=== PATIENT | female | born 1940 | race Caucasian/White ===

== ENCOUNTER → 2018-07-27 | Outpatient (CLI) | payer OTHER | LOC: M.RAD 10:49 | DX: I51.7 Cardiomegaly (principal); J90 Pleural effusion, not elsewhere classified; E03.9 Hypothyroidism, unspecified ==

== ENCOUNTER → 2018-07-29 | Outpatient (CLI) | payer OTHER ==
[2018-07-29 08:59] LABS: INR 1.7
[2018-07-29 12:54] LABS: BF RBC 55671 /mm3; TOTAL CELL COUNT 1197 /mm3
[2018-07-29 13:01] LABS: CLARITY HAZY; COLOR RED; TOTAL VOLUME 1100 ml
[2018-07-29 13:14] LABS: BF LYMPHOCYTES 76 %; BF MONOCYTES 21 %; BF POLYS 3 %
[2018-07-29 13:26] LABS: SOURCE THORACENTESIS
== END | disposition home or self-care (01) ==
LOC: M.ULTRA 08:31 → M.LAB 09:00 → M.ULTRA 10:00
PROVIDERS: Family Medicine
DX: J90 Pleural effusion, not elsewhere classified (principal)

== ENCOUNTER 2019-11-13 15:55 | Inpatient (IN) | payer OTHER ==
[~2019-11-13] VITALS: Ht 160 cm; Wt 59.0 kg
--- NOTE | ~2019-11-13 | PROC ---
[address] [address] PROCEDURE REPORT Name: ANGELINA YEBOAH Room: [address] IN ..#: [id number] Admission: 11/13/19 Attend Phys: Zurdo Alva MD Discharge: Date of : 38 Report #: [id number] THIS REPORT FOR: //name// For GI report, please see the Provation report in Perceptive 7 content. By: [id number] Records Staff SCOTT /REY
--- NOTE | ~2019-11-13 | PROC ---
[address] [address] PROCEDURE REPORT Name: ANGELINA YEBOAH Room: [address] IN ..#: [id number] Admission: 11/13/19 Attend Phys: Zurdo Alva MD Discharge: Date of : 38 Report #: [id number] THIS REPORT FOR: //name// For GI report, please see the Provation report in Perceptive 7 content. By: [id number] Records Staff [facility] /REY
[2019-11-13 16:03] VITALS: BP 99/45
[2019-11-13] MEDS ORDERED: ELIQUIS5 MG PO (16:15)
[2019-11-13] MEDS ORDERED: DIGOX250 MCG PO (16:15)
[2019-11-13] MEDS ORDERED: METOLAZONE10 MG PO (16:18)
[2019-11-13] MEDS ORDERED: LEVO-T25 MCG PO (16:18)
[2019-11-13] MEDS ORDERED: COLACE100 MG PO (16:19)
[2019-11-13] MEDS ORDERED: KLOR-CON M2020 MEQ PO (16:20)
[2019-11-13] MEDS ORDERED: OCUVITE ADULT1 EAC1 PO (16:20)
[2019-11-13] MEDS ORDERED: PRAVACHOL40 M1 PO (16:21)
[2019-11-13] MEDS ORDERED: IRON325 M1 PO (16:21)
[2019-11-13] MEDS ORDERED: DEMADEX20 MG PO (16:21)
[2019-11-13] MEDS ORDERED: SPIRONOLACTONE50 MG PO (16:22)
[2019-11-13] MEDS ORDERED: TOPROL XL50 MG PO (16:22)
[2019-11-13 16:51] LABS: ABSOLUTE MONOCYTES 0.7 thou/uL (0.0-1.2); ABSOLUTE NEUTROPHILS 2.1 thou/uL (1.6-8.1); EOSINOPHILS 1.2 %; LYMPHOCYTES 25.6 %; MCH 31.8 pg (26.0-34.0); MCHC 32.9 g/dL (28.0-37.0); MCV 96.6 fL (80.0-100.0); MONOCYTES 17.3 %; MPV 7.7 fl. (7.2-11.1); NUCLEATED RBCS 0 /100WBC; PLATELET COUNT* 172 thou/uL (150-400); POLYS 54.9 %; RBC 1.78 mil/uL (4.20-5.00); RDW-CV 14.1 % (10.5-14.5); WBC 3.9 thou/uL (4.0-11.0)
[2019-11-13 16:54] LABS: HEMATOCRIT 17.2 % (37.0-47.0); HEMOGLOBIN 5.7 gm/dL (12.0-15.0)
[2019-11-13 17:02] LABS: CALCIUM 8.4 mg/dL (8.5-10.1); CREATININE 1.3 mg/dL (0.6-1.3)
[2019-11-13 17:11] LABS: ALBUMIN 2.8 g/dL (3.4-5.0); TOTAL BILIRUBIN 0.7 mg/dL (<0.1-1.0); TOTAL PROTEIN 5.5 g/dL (6.4-8.2)
[2019-11-13 19:08] VITALS: BP 106/68
[2019-11-13 19:30] VITALS: BP 113/39
[2019-11-14] VITALS (8 sets, daily range): BP systolic 98–122; BP diastolic 37–70
[2019-11-14 04:15] LABS: URINE BILIRUBIN NEGATIVE (Negative); URINE BLOOD NEGATIVE (Negative); URINE CLARITY CLEAR; URINE COLOR YELLOW; URINE GLUCOSE-RANDOM NEGATIVE (Negative); URINE KETONES NEGATIVE (Negative); URINE LEUKOCYTES-REFLEX 1+ (Negative); URINE NITRITE-REFLEX NEGATIVE (Negative); URINE PROTEIN NEGATIVE (Negative); URINE SPECIFIC GRAVITY <= 1.005 (1.005-1.030); URINE UROBILINOGEN 0.2 E.U./dl (0.2-1.0)
[2019-11-14 06:13] LABS: SQUAMOUS 0-3 Few /LPF (0-3)
[2019-11-14 06:15] LABS: BACTERIA-REFLEX 1-9 Few /HPF (None Seen); CASTS None Seen /LPF (None Seen); CRYSTALS None Seen /LPF (None Seen); URINE RBC 0-2 Rare /HPF (0-2); URINE WBC-REFLEX 6-15 Few /HPF (0-5)
[2019-11-14 07:03] LABS: ABSOLUTE EOSINOPHILS 0.1 thou/uL (0.0-0.7); ABSOLUTE MONOCYTES 0.8 thou/uL (0.0-1.2); ABSOLUTE NEUTROPHILS 2.7 thou/uL (1.6-8.1); BASOPHILS 0.9 %; EOSINOPHILS 1.5 %; LYMPHOCYTES 21.9 %; MCH 31.5 pg (26.0-34.0); MCV 92.5 fL (80.0-100.0); MONOCYTES 17.8 %; NUCLEATED RBCS 0 /100WBC; PLATELET COUNT* 146 thou/uL (150-400); POLYS 57.9 %; RBC 1.93 mil/uL (4.20-5.00); RDW-CV 16.5 % (10.5-14.5); WBC 4.6 thou/uL (4.0-11.0)
[2019-11-14 07:06] LABS: HEMATOCRIT 17.8 % (37.0-47.0); HEMOGLOBIN 6.1 gm/dL (12.0-15.0)
[2019-11-14 07:13] LABS: CALCIUM 8.4 mg/dL (8.5-10.1); CREATININE 1.4 mg/dL (0.6-1.3); POTASSIUM 4.3 mmol/L (3.5-5.1)
--- NOTE | 2019-11-14 14:49 | 2DMMODE ---
[place] [address] 2 D/M-MODE ECHOCARDIOGRAM Name: ANGELINA YEBOAH Room: [address] IN [facility]#: [id number] Admission: 11/13/19 Attend Phys: Zurdo Alva, Discharge: Date of : 38 Date of Service: 11/14/19 1449 Report #: [id number] THIS REPORT FOR: //name// APPROVED REPORT Study performed: 11/14/2019 09:44:48 EXAM: Comprehensive 2D, Doppler, and color-flow Echocardiogram Patient Location: In-Patient Room #: [facility] Status: routine BSA: 1.58 HR: 79 bpm BP: 99/37 mmHg Rhythm: NSR Other Information Study Quality: Good Indications Mitral Valve Disease 2D Dimensions IVSd: 12.84 (7-11mm) LVOT Diam: 21.55 (18-24mm) LVDd: 39.26 mm PWd: 11.33 (7-11mm) Ascending Ao: 25.34 (22-36mm) LVDs: 24.64 (25-40mm) Aortic Root: 30.21 mm Volumes Left Atrial Volume (Systole) LA ESV Index: 96.60 mL/m2 Aortic Valve LVOT Max P.04 mmHg LVOT Mean P.28 mmHg LVOT Max V: 1.01 m/s LVOT Mean V: 0.71 m/s LVOT V1 VTI: 19.74 cm TDI Medial E' Nicho.: 0.21 m/s Lateral E' Nicho.: 0.16 m/[place] [address] 2 D/M-MODE ECHOCARDIOGRAM Name: ANGELINA YEBOAH Room: [address] IN [facility]#: [id number] Admission: 11/13/19 Attend Phys: Zurdo Alva, Discharge: Date of : 38 Date of Service: 11/14/19 1449 Report #: [id number] PV Peak Nicho.: 1.56 m/s PV Peak Gr.: 9.74 mmHg Tricuspid Valve RAP Estimate: 5.00 mmHg TR Peak Gr.: 44.93 mmHg RVSP: 49.00 mmHg PA Pressure: 49.00 mmHg Left Ventricle The left ventricle is normal size. There is normal LV segmental wall motion. There is normal left ventricular wall thickness. Left ventricular systolic function is vigorous. LVEF is >70%. This study is not technically sufficient to allow evaluation of the LV diastolic function due to atrial fibrillation. Right Ventricle Right ventricle is mildly dilated. The right ventricular systolic function is normal. Atria Left atrium is severely dilated. Closure device present Right atrium is severely dilated. Aortic Valve The aortic valve is normal in structure. No aortic regurgitation is present. There is no aortic valvular stenosis. Mitral Valve Mitral valve clip present Mild mitral regurgitation. No evidence of mitral valve stenosis. Tricuspid Valve Tricuspid valve clip present Severe tricuspid regurgitation. The RVSP is 55-60 mmHg. Moderate pulmonary hypertension. Pulmonic Valve The pulmonary valve is normal in structure. Mild pulmonic regurgitation. Great Vessels The aortic root is normal in size. IVC is dilated and collapses >50% with inspiration. Pericardium There is no pericardial effusion. <Conclusion> [place] [address] 2 D/M-MODE ECHOCARDIOGRAM Name: ANGELINA YEBOAH Room: [address] IN ..#: [id number] Admission: 11/13/19 Attend Phys: Zurdo Alva, Discharge: Date of : 38 Date of Service: 11/14/19 1449 Report #: [id number] The left ventricle is normal size. There is normal left ventricular wall thickness. Left ventricular systolic function is vigorous. LVEF is >70%. Right ventricle is mildly dilated. Left atrium is severely dilated. Right atrium is severely dilated. Closure device present Mitral valve clip present Mild mitral regurgitation. Tricuspid valve clip present Severe tricuspid regurgitation. The RVSP is 55-60 mmHg. Moderate pulmonary hypertension. Mild pulmonic regurgitation. IVC is dilated and collapses >50% with inspiration. <ELECTRONICALLY SIGNED> By: Jeff Corrales MD, FACC 11/14/19 1449 1449 1449 Jeff Corrales MD, FACC /INF
--- NOTE | 2019-11-14 16:05 | EKG ---
[place] [address] ELECTROCARDIOGRAM REPORT Name: ANGELINA YEBOAH Room: [address] ADM IN [facility]#: [id number] Admission: 11/13/19 Attend Phys: Zurdo Alva MD Discharge: Date of : 38 Report #: [id number] THIS REPORT FOR: //name// [facility] ED Test Date: 2019-11-13 Test Time: 16:27:16 Pat Name: ANGELINA YEBOAH Department: Room: [facility] Gender: F Ham Smoker: MS : 1940 Requested By: Garcia Nuñez Order Number: [id number] MD: Asael Rodriguez Measurements Intervals Walker Rate: 70 P: MA: QRS: -81 QRSD: 95 T: 263 QT: 517 QTc: 558 Interpretive Statements Atrial flutter with variable block LAD, consider left anterior fascicular block RSR' in V1 or V2, right VCD or RVH Nonspecific T abnormalities, lateral leads Prolonged QT interval No previous ECG available for comparison Electronically Signed On 11-14-2019 16:05:11 VETERINARY VIROLOGIST by Asael Rodriguez [email or web address] <ELECTRONICALLY SIGNED> By: Asael Rodriguez MD, [facility] 11/14/19 1605 1627 1627 Asael Rodriguez MD, FAC /EPI
[2019-11-15] VITALS: BP 103/40
[2019-11-15 04:00] VITALS: BP 112/43
[2019-11-15 04:35] LABS: ABSOLUTE EOSINOPHILS 0.1 thou/uL (0.0-0.7); ABSOLUTE LYMPHOCYTES 0.9 thou/uL (0.8-5.3); ABSOLUTE MONOCYTES 0.8 thou/uL (0.0-1.2); ABSOLUTE NEUTROPHILS 2.4 thou/uL (1.6-8.1); BASOPHILS 0.6 %; EOSINOPHILS 2.7 %; HEMATOCRIT 20.9 % (37.0-47.0); HEMOGLOBIN 7.3 gm/dL (12.0-15.0); LYMPHOCYTES 21.9 %; MCH 31.2 pg (26.0-34.0); MCHC 34.8 g/dL (28.0-37.0); MCV 89.7 fL (80.0-100.0); MONOCYTES 19.2 %; MPV 7.1 fl. (7.2-11.1); NUCLEATED RBCS 0 /100WBC; PLATELET COUNT* 131 thou/uL (150-400); POLYS 55.6 %; RBC 2.33 mil/uL (4.20-5.00); RDW-CV 15.8 % (10.5-14.5); WBC 4.3 thou/uL (4.0-11.0)
[2019-11-15 04:46] LABS: ALBUMIN 2.4 g/dL (3.4-5.0); CALCIUM 7.7 mg/dL (8.5-10.1); CREATININE 1.1 mg/dL (0.6-1.3); POTASSIUM 3.9 mmol/L (3.5-5.1); TOTAL BILIRUBIN 1.4 mg/dL (<0.1-1.0); TOTAL PROTEIN 4.6 g/dL (6.4-8.2)
[2019-11-15 05:47] LABS: CALCIUM 7.6 mg/dL (8.5-10.1); CREATININE 1.1 mg/dL (0.6-1.3); POTASSIUM 3.8 mmol/L (3.5-5.1)
[2019-11-15 08:00] VITALS: BP 103/40
[2019-11-15 16:49] VITALS: BP 99/36
[2019-11-15 20:00] VITALS: BP 104/49
[2019-11-16] VITALS: BP 99/40
[2019-11-16 04:00] VITALS: BP 89/44
[2019-11-16 04:47] LABS: ABSOLUTE EOSINOPHILS 0.1 thou/uL (0.0-0.7); ABSOLUTE MONOCYTES 0.9 thou/uL (0.0-1.2); ABSOLUTE NEUTROPHILS 5.4 thou/uL (1.6-8.1); BASOPHILS 0.5 %; EOSINOPHILS 1.7 %; HEMOGLOBIN 7.7 gm/dL (12.0-15.0); LYMPHOCYTES 13.3 %; MCH 30.4 pg (26.0-34.0); MCHC 33.3 g/dL (28.0-37.0); MCV 91.3 fL (80.0-100.0); MONOCYTES 11.6 %; MPV 7.6 fl. (7.2-11.1); NUCLEATED RBCS 0 /100WBC; PLATELET COUNT* 154 thou/uL (150-400); POLYS 72.9 %; RBC 2.52 mil/uL (4.20-5.00); RDW-CV 15.9 % (10.5-14.5); WBC 7.3 thou/uL (4.0-11.0)
[2019-11-16 05:07] LABS: ALBUMIN 2.6 g/dL (3.4-5.0); CALCIUM 8.7 mg/dL (8.5-10.1); CREATININE 1.2 mg/dL (0.6-1.3); POTASSIUM 4.7 mmol/L (3.5-5.1); TOTAL BILIRUBIN 1.1 mg/dL (<0.1-1.0); TOTAL PROTEIN 5.1 g/dL (6.4-8.2)
[2019-11-16 08:00] VITALS: BP 99/39
--- NOTE | 2019-11-16 14:27 | CON ---
[address] [address] CONSULTATION Name: ANGELINA YEBOAH Room: [address] IN M.R.#: [id number] Admission: 11/13/19 Attend Phys: Zurdo Alva MD Discharge: Date of : 38 Report #: [id number] THIS REPORT FOR: //name// CC: Zurdo Santiago DO DICTATED BY: Erika Oneil [facility] DATE OF SERVICE: 11/14/2019 Please note at the time of this dictation, the patient was seen and physically examined by myself. REASON FOR CONSULTATION: GI bleed, melanotic stool. HISTORY OF PRESENT ILLNESS: This is a pleasant 79-year-old female who presented to the Emergency Room, which she states that she is having progressively worsening of black stool. She states she had had several, the day of admission. Normally, her bowels just move once daily; however, over the last 2 weeks, they have been increasing in frequency and worsening at night. She has had some nausea associated with it, but no vomiting. She does have some epigastric pain. She will have some mild lower abdominal cramping prior to a bowel movement. The patient is on anticoagulant therapy secondary to atrial fibrillation. She has been seen by consultants in Gastroenterology by Dr. Salinas many years ago. She has had both an upper and lower scopes done and we will obtain those records for review. The patient also states prior to the onset of all this, she has been having some difficulty with dysphagia that she feels like food is getting stuck or has difficulty in going down, but she has never vomited from any of these episodes. She denies taking any NSAIDs at this time and she denies any acid reflux or taken any PPIs at this time. ALLERGIES: LISINOPRIL AND TALWIN. HOME MEDICATIONS: From home include digoxin, Eliquis, metolazone, levothyroxine, potassium chloride, Ocuvite, soft gels, iron supplement, Demadex, Pravachol, spironolactone, Toprol and Colace. PAST MEDICAL HISTORY: Dyslipidemia, edema, generalized permanent atrial fibrillation, she has had irritable bowel syndrome, hemorrhoids, history of supraventricular tachycardia and V-tach, coronary artery disease, she has mitral valve insufficiency and tricuspid valve regurgitation. PAST SURGICAL HISTORY: She had an atrial septal defect with repair, [place] [address] CONSULTATION Name: ANGELINA YEBOAH Bri Room: [address] IN [facility]#: [id number] Admission: 11/13/19 Attend Phys: Zurdo Alva MD Discharge: Date of : 38 Report #: [id number] FAMILY HISTORY: Sister, breast cancer. SOCIAL HISTORY: She lives with her sister. Denies any alcohol, tobacco or illegal drug use. REVIEW OF SYSTEMS: Twelve-point review of systems is essentially negative except what is mentioned in the HPI. PHYSICAL EXAMINATION: VITAL SIGNS: Temperature 37.5, pulse 86, respirations 18, blood pressure 121/55. HEART: Regular rate and rhythm. Her heart has irregular rate and rhythm. LUNGS: Diminished, but clear. ABDOMEN: Soft, positive bowel sounds in all 4 quadrants with some slight epigastric tenderness noted to palpation. LABORATORY DATA: Hemoglobin was 5.7 on admission, currently 6.1. She has gotten 1 unit of blood and on for second. White count is 4.6, platelets 146. BUN on admission was 72, it is 63 at this time with a creatinine of 1.4 and GFR of 36. CTA shows biliary sludge, otherwise bowel wall thickening in the rectosigmoid area and diverticulosis. IMPRESSION: 1. Gastrointestinal bleed. 2. Melanotic stool. 3. Nausea. 4. Epigastric pain. 5. Acute anemia. 6. Dysphagia. 7. Anticoagulant therapy, Eliquis, secondary to atrial fibrillation. 8. Family history, sister with breast cancer. PLAN: 1. EGD tomorrow with Dr. Haynes. 2. Start a Protonix drip. 3. Labs, CBC, CMP tomorrow in the a.m. 4. Transfuse to keep hemoglobin greater than 7, p.r.n. 5. Further recommendations to be made once Dr. Haynes sees the patient later today. Thank you for allowing us to participate in this patient's care. Please do not hesitate to call with any questions in regard to this consult. <ELECTRONICALLY SIGNED> By: Melina Haynes MD 11/16/19 1427 1059 1139Melina Haynes MD /nt
[2019-11-16 16:34] VITALS: BP 108/44
[2019-11-16 19:59] VITALS: BP 110/46
[2019-11-17] VITALS: BP 101/41
[2019-11-17 04:00] VITALS: BP 99/41
[2019-11-17 04:57] LABS: HEMATOCRIT 21.3 % (37.0-47.0); HEMOGLOBIN 7.2 gm/dL (12.0-15.0); MCH 30.6 pg (26.0-34.0); MCHC 33.6 g/dL (28.0-37.0); MCV 91.1 fL (80.0-100.0); MPV 7.1 fl. (7.2-11.1); RBC 2.34 mil/uL (4.20-5.00); RDW-CV 15.5 % (10.5-14.5); WBC 4.2 thou/uL (4.0-11.0)
[2019-11-17 05:17] LABS: CALCIUM 7.7 mg/dL (8.5-10.1); CREATININE 1.6 mg/dL (0.6-1.3); MAGNESIUM 2.6 mg/dL (1.8-2.4); POTASSIUM 5.5 mmol/L (3.5-5.1)
[2019-11-17 08:00] VITALS: BP 94/33
[2019-11-17 12:00] VITALS: BP 93/41
[2019-11-17 12:44] LABS: % SATURATION 4 % (20-39); IRON 12 ug/dL (50-175)
[2019-11-17 16:00] VITALS: BP 97/35
[2019-11-17 20:00] VITALS: BP 111/53
[2019-11-18] VITALS: BP 98/41
[2019-11-18 02:46] LABS: HEMATOCRIT 21.2 % (37.0-47.0); MCH 30.3 pg (26.0-34.0); MCV 91.7 fL (80.0-100.0); MPV 7.8 fl. (7.2-11.1); RBC 2.32 mil/uL (4.20-5.00); RDW-CV 15.3 % (10.5-14.5); WBC 3.1 thou/uL (4.0-11.0)
[2019-11-18 02:48] LABS: CALCIUM 7.7 mg/dL (8.5-10.1); CREATININE 1.4 mg/dL (0.6-1.3); MAGNESIUM 2.5 mg/dL (1.8-2.4); POTASSIUM 5.4 mmol/L (3.5-5.1)
[2019-11-18 04:00] VITALS: BP 103/46
[2019-11-18 08:00] VITALS: BP 107/46
[2019-11-18 12:00] LABS: HEMOGLOBIN 7.1 gm/dL (12.0-15.0)
[2019-11-18 14:00] VITALS: BP 113/40
[2019-11-18 20:00] VITALS: BP 125/52
[2019-11-19] VITALS (7 sets, daily range): BP systolic 90–129; BP diastolic 27–63
[2019-11-19 04:17] LABS: HEMATOCRIT 22.8 % (37.0-47.0); HEMOGLOBIN 7.6 gm/dL (12.0-15.0); MCH 30.8 pg (26.0-34.0); MCHC 33.5 g/dL (28.0-37.0); MCV 91.9 fL (80.0-100.0); MPV 6.9 fl. (7.2-11.1); RBC 2.48 mil/uL (4.20-5.00); RDW-CV 15.4 % (10.5-14.5); WBC 3.1 thou/uL (4.0-11.0)
[2019-11-19 04:23] LABS: APTT 25.8 Seconds (25.0-31.3); INR 1.1; PROTIME 11.3 Seconds (9.20-11.50)
[2019-11-20] VITALS: BP 115/50
[2019-11-20 04:00] VITALS: BP 92/50
[2019-11-20 04:44] LABS: HEMATOCRIT 21.2 % (37.0-47.0); MCH 30.2 pg (26.0-34.0); MCHC 33.2 g/dL (28.0-37.0); MCV 90.9 fL (80.0-100.0); MPV 7.3 fl. (7.2-11.1); RBC 2.33 mil/uL (4.20-5.00); RDW-CV 15.5 % (10.5-14.5); WBC 3.5 thou/uL (4.0-11.0)
[2019-11-20 04:55] LABS: CALCIUM 8.3 mg/dL (8.5-10.1); CREATININE 1.2 mg/dL (0.6-1.3); MAGNESIUM 2.2 mg/dL (1.8-2.4); POTASSIUM 5.1 mmol/L (3.5-5.1)
[2019-11-20 08:00] VITALS: BP 112/44
[2019-11-20] MEDS ORDERED: PANTOPRAZOLE SO40 M1 PO (09:26)
[2019-11-20 10:14] VITALS: BP 112/44
--- NOTE | 2019-11-20 15:07 | PATH ---
[address] [address] PATHOLOGY RPT PROCEDURE Name: MIRANDA YEBOAH Room: [address] IN .R.#: [id number] Admission: 11/13/19 Date of : 38 Discharge: 11/20/19 Report #: [id number] Path Case #: [id number] [facility] Accession Number: [id number] . 01 Material submitted: . stomach - ANTRAL BIOPSY . 01 Clinical history: . None provided . 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 (TOSHIA:la nena; 11/20/2019) . Special stain: H. pylori immuno MBR 11/20/2019 1325 Local . 02 Electronically signed: . Rob Huerta MD, Pathologist NPI- [id number] . 01 Gross description: . Received in formalin labeled "Miranda Yeboah, antral biopsy," are four segments of lee soft tissue measuring 0.6 x 0.5 x 0.2 cm in aggregate dimensions and ranging from 0.3 to 0.4 cm in maximum dimension. The specimen is submitted entirely in cassette A1. (DAC; 11/17/2019) XDC/XDC 11/17/2019 1100 Local . 02 Pathologist provided ICD-10: K29.50 . 02 CPT . 275105, C00426 Specimen Comment: A courtesy copy of this report has been sent to [phone] Specimen Comment: [phone], Specimen Comment: Report sent to , and Performed at: [address] [id number] MD Ludwin Live MD Phone: [phone] Performed at: [address] [id number] [address] [address] PATHOLOGY RPT PROCEDURE Name: MIRANDA YEBOAH Bri Room: [address] IN M.R.#: [id number] Admission: 11/13/19 Date of : 38 Discharge: 11/20/19 Report #: [id number] Path Case #: [id number] MD Rob Huerta MD Phone: [phone]
--- NOTE | 2019-11-21 15:06 | PATH ---
[facility] [address] [place] [address] PATHOLOGY RPT PROCEDURE Name: MIRANDA YEBOAH Room: [address] IN ..#: [id number] Admission: 11/13/19 Date of : 38 Discharge: 11/20/19 Report #: [id number] Path Case #: [id number] [facility] Accession Number: [id number] . 01 Material submitted: . PART A: sigmoid colon - SIGMOID COLON POLYP PART B: colon - TRANSVERSE COLON POLYP. Modifiers: transverse . 01 Clinical history: . Lower GI bleed . 02 Diagnosis: A. Sigmoid colon polyp: - Tubular adenoma, negative for high-grade dysplasia. . B. Transverse colon polyp: - Tubular adenoma, negative for high-grade dysplasia. . (TOSHIA:sylvia; 11/21/2019) S 11/21/2019 1059 Local . 02 Electronically signed: . Rob Huerta MD, Pathologist NPI- [id number] . 01 Gross description: . A. The specimen is received in formalin, labeled "Miranda Yeboah, sigmoid colon polyp" and consists of a fragment of pink-lee tissue measuring 0.4 x 0.3 cm which is entirely submitted in A1. . B. The specimen is received in formalin, labeled "Jaiden, Miranda, transverse colon polyp" and consists of 2 fragments of pink-lee tissue measuring 0.4 x 0.3 cm and 0.4 x 0.4 cm which are entirely submitted in B1. (SDY; 11/20/2019) SYU/SYU 11/20/2019 1618 Local . 02 Pathologist provided ICD-10: D12.5, D12.3 . 02 CPT . 593795, 565751 Specimen Comment: A courtesy copy of this report has been sent to [phone] Specimen Comment: [phone], Specimen Comment: Report sent to ,DR SEARS / DR HEBERT Specimen Comment: A duplicate report has been generated due [place] [address] PATHOLOGY RPT PROCEDURE Name: MIRANDA YEBOAH Bri Room: [address] IN M.R.#: [id number] Admission: 11/13/19 Date of : 38 Discharge: 11/20/19 Report #: [id number] Path Case #: [id number] Performed at: 01 [facility] [place] [address] [facility] [address], [place], [place] [id number] MD Ludwin Live MD Phone: [phone] Performed at: [address] [facility] [address] [place] [id number] MD Rob Huerta MD Phone: [phone]
== END 2019-11-20 12:00 | disposition home or self-care (01) | DRG 377 ==
LOC: M.ERS 15:55 → M.TBA-ER 17:39 → M.2W 17:39
PROVIDERS: Family Medicine; Internal Medicine; Nurse Practitioner Adult Health; ADMIT Internal Medicine
PROC: 30233N1 Transfusion of Nonautologous Red Blood Cells into Peripheral Vein, Percutaneous Approach (ICD-10-PCS; principal; 2019-11-14)
PROC: 0DB68ZX Excision of Stomach, Via Natural or Artificial Opening Endoscopic, Diagnostic (ICD-10-PCS; 2019-11-15)
PROC: 0D758ZZ Dilation of Esophagus, Via Natural or Artificial Opening Endoscopic (ICD-10-PCS; 2019-11-15)
PROC: 0DJD8ZZ Inspection of Lower Intestinal Tract, Via Natural or Artificial Opening Endoscopic (ICD-10-PCS; 2019-11-16)
PROC: 0DBN8ZZ Excision of Sigmoid Colon, Via Natural or Artificial Opening Endoscopic (ICD-10-PCS; 2019-11-19)
PROC: 0DBL8ZZ Excision of Transverse Colon, Via Natural or Artificial Opening Endoscopic (ICD-10-PCS; 2019-11-19)
DX: K29.71 Gastritis, unspecified, with bleeding (principal); I50.33 Acute on chronic diastolic (congestive) heart failure; N17.0 Acute kidney failure with tubular necrosis; D62 Acute posthemorrhagic anemia; E44.0 Moderate protein-calorie malnutrition; D61.818 Other pancytopenia; I48.21 Permanent atrial fibrillation; I48.92 Unspecified atrial flutter; D68.69 Other thrombophilia; I13.0 Hypertensive heart and chronic kidney disease with heart failure and stage 1 through stage 4 chronic kidney disease, or unspecified chronic kidney disease; K57.31 Diverticulosis of large intestine without perforation or abscess with bleeding; E78.5 Hyperlipidemia, unspecified; K63.5 Polyp of colon; N18.3 Chronic kidney disease, stage 3 (moderate); I25.10 Atherosclerotic heart disease of native coronary artery without angina pectoris; R13.10 Dysphagia, unspecified; K21.0 Gastro-esophageal reflux disease with esophagitis; K22.2 Esophageal obstruction; K44.9 Diaphragmatic hernia without obstruction or gangrene; K31.9 Disease of stomach and duodenum, unspecified; K64.4 Residual hemorrhoidal skin tags; K64.8 Other hemorrhoids; I08.0 Rheumatic disorders of both mitral and aortic valves; Z88.8 Allergy status to other drugs, medicaments and biological substances; Z79.01 Long term (current) use of anticoagulants; Z80.3 Family history of malignant neoplasm of breast; Z79.899 Other long term (current) drug therapy